=== PATIENT | male | born 1995 | race African-American/Black ===

== ENCOUNTER 2022-12-03 21:01 | Emergency (ER) | payer SELFPAY ==
[2022-12-03 21:06] VITALS: BP 136/68; PULSE 67; RESP 18; TEMP 36.4; O2SAT 100; BMI 24.1
--- NOTE | 2022-12-03 22:26 | ED.GENADULT ---
HPI - General Adult General Chief complaint: Burn/Smoke Inhalation Stated complaint: Burn on neck Time Seen by Provider: 12/03/22 22:06 Source: patient Mode of arrival: ambulatory Limitations: no limitations History of Present Illness HPI narrative: Patient emergency room complaining of a rash in the back of his neck. Patient states that earlier today he scrubbed and cleaned the back of his neck with alcohol and feels like it is burning. Patient has fever chills, no difficulty breathing. Denies rash anywhere else. Related Data Previous Rx's Medication Instructions Recorded hydrocortisone 2.5 % topical cream 1 appl topical TID #20 grams 12/03/22 Allergies Allergy/AdvReac Type Severity Reaction Status Date / Time No Known Allergies Allergy Verified 12/03/22 21:11 Review of Systems Review of Systems: Constitutional : No Weight loss, No Fever, No Chills, No Night Sweats, No Fatigue, No Malaise ENT/Mouth : No Hearing loss, No Ear Pain, No Nasal Congestion, No Sinus Pain, No Hoarseness, No sore throat, No Rhinorrhea, No Swallowing Difficulty Eyes: No Eye Pain, No Swelling, No Redness, No Foreign Body, No Discharge, No Vision Changes Cardiovascular : No Chest Pain, No SOB, No Dyspnea on Exertion, No Orthopnea, No Edema, No Palpitations Respiratory : No Cough, No Sputum, No Wheezing, No Smoke Exposure, No Dyspnea Gastrointestinal : No Nausea, No Vomiting, No Diarrhea, No Constipation, No abdominal Pain, No Hematochezia, No Melena Genitourinary : no irregular bleeding, No Dysuria, No Urinary Frequency, No Hematuria, No Urinary Incontinence, No Urgency, No Flank Pain, No Urinary Flow Changes, No Hesitancy Musculoskeletal : No joint pain, No Myalgias, No Joint Swelling Skin : Complaining of a rash on the back of his head after rubbing alcohol Neuro : No Weakness, No Numbness, No Paresthesias, No Loss of Consciousness, No Dizziness, No Headache Psych : No Anxiety/Panic, No Depression, No SI/HI/AH/VH, No Social Issues, Heme/Lymph: No Bruising, No Bleeding,No Lymphadenopathy Endocrine : No Polyuria, No Polydipsia, No Temperature Intolerance PMFSH Social History Social History Alcohol intake: never Smoked in Last 30 Days: Yes Use of substances other than those prescribed or required for medical reasons: No Advance Directives: No Advance Directives Information Provided: No Physical Exam ED Vital Signs: Vital Signs - 24 hr 12/03/22 21:06 Temperature 97.6 F Pulse Rate 67 Respiratory Rate 18 Blood Pressure 136/68 Pulse Oximetry 100 Oxygen Delivery Method Room Air BMI result Body Mass Index 24.1 Const Other: Appearance: Alert. Oriented X3. No acute distress. Eyes: Pupils equal, round and reactive to light. ENT: Pharynx normal. Neck: Normal inspection. Neck supple. No lymph nodes noted. No crepitus CVS: Normal heart rate and rhythm. Pulses normal. Normal S1 and S2 Respiratory: No respiratory distress. Breath sounds normal. No Wheezing. No rales Abdomen: Soft and nontender. No rigidity. No distention. Skin: Skin warm and dry. Patient has a rash compatible with contact dermatitis bilateral sides of the posterior neck Extremities: No lower extremity edema. No Lacerations. No Rash Neuro: Oriented X 3. No motor deficit. No sensory deficit. Moving all extremities. No slurred speech. CN 2 through 12 grossly intact Psych: calm, cooperative, normal affect Course Course Course Narrative: Patient does not have any hives -patient likely has contact dermatitis to alcohol Patient being sent home with a prescription for hydrocortisone Medical Decision Making Differential Diagnosis Differential Diagnoses: The differential diagnosis associated with the presentation includes (Allergic reaction, contact dermatitis) Discharge Plan Discharge Clinical Impression: Dermatitis Patient Disposition: Home, Self-Care Instructions: Dermatitis (ED) Additional Instructions: Please follow-up with your primary care physician tomorrow. If you have any worsening or new symptoms, please return to the emergency room or call 911 Prescriptions: New hydrocortisone 2.5 % cream 1 appl topical TID Qty: 20 0RF
== END 2022-12-03 22:43 | disposition home or self-care (01) ==
PROVIDERS: Emergency Provider Emergency Medicine
DX: L23.9 Allergic contact dermatitis, unspecified cause (principal)
CPT/HCPCS: 99283